=== PATIENT | female | born 1980 | race Two or more races ===

== ENCOUNTER 2017-10-25 15:23 | Emergency (ER) | payer MEDICAID ==
[2017-10-25 15:40] VITALS: BP 125/78
[2017-10-25] MEDS ORDERED: ACETAMINOPHEN 325 MG TABLET PO ONE (16:17)
--- NOTE | 2017-10-25 16:51 | RADIOLOGY REPORT (SQ) ---
EXAM DESCRIPTION: FOOT LEFT COMPLETE COMPLETED DATE/TIME: 10/25/2017 4:35 pm REASON FOR STUDY: pain 5th toe and foot COMPARISON: None. NUMBER OF VIEWS: Three views. TECHNIQUE: AP, lateral and oblique radiographic images acquired of the left foot. LIMITATIONS: None. FINDINGS: MINERALIZATION: Normal. BONES: Faint nondisplaced fracture midshaft of the proximal phalanx of the 5th toe. JOINTS: No effusions. SOFT TISSUES: Soft tissue swelling 5th toe. OTHER: No other significant finding. IMPRESSION: Faint nondisplaced fracture proximal phalanx 5th toe. TECHNICAL DOCUMENTATION: JOB ID: [id number] [employer]- All Rights Reserved Reading location - IP/workstation name: [email or web address]
--- NOTE | 2017-10-25 17:57 | ER Document Report ---
ED Extremity Problem, Lower - General Chief Complaint: Toe Injury Stated Complaint: LEFT PINKY TOE INJURY Time Seen by Provider: 10/25/17 16:17 Mode of Arrival: Ambulatory Information source: Patient Notes: 37-year-old female presents to ED for complaint of fifth toe pain after she kicked a 10 pound weight yesterday. She states she is elevated and iced the foot with no relief. Patient alert and oriented respirations regular and unlabored speaking in full sentences and walks with a limp. TRAVEL OUTSIDE OF THE [place] IN LAST 30 DAYS: No - HPI Patient complains to provider of: Injury, Pain, Swelling Location: 5th Toe Occurred: Yesterday Where: Home Onset/Duration: Sudden, Persistent Quality of pain: Achy, Throbbing Severity: Moderate Pain Level: 4 Context: Stubbed Recent injury: Yes Associated symptoms: Painful ambulation Exacerbated by: Hanging down, Movement, Walking Relieved by: Elevation, Ice, Rest - Related Data Allergies/Adverse Reactions: codeine [Codeine] Allergy (Verified 10/25/17 15:23) Past Medical History - General Information source: Patient - Social History Smoking Status: Current Every Day Smoker Cigarette use (# per day): Yes - One half pack per day Smoking Education Provided: Yes - 4 minutes Lives with: Family Family History: Reviewed & Not Pertinent Patient has suicidal ideation: No Patient has homicidal ideation: No - Past Medical History Cardiac Medical History: Reports: None Pulmonary Medical History: Reports: None EENT Medical History: Reports: None Neurological Medical History: Reports: None Endocrine Medical History: Reports: None Renal/ Medical History: Reports: Hx Ovarian Cysts Malignancy Medical History: Reports: None GI Medical History: Reports: None Musculoskeltal Medical History: Reports Hx Musculoskeletal Trauma Skin Medical History: Reports None Psychiatric Medical History: Reports: None Traumatic Medical History: Reports: Hx Fractures - Leg Infectious Medical History: Reports: None Past Surgical History: Reports: Hx Gynecologic Surgery - Ovarian cyst - Immunizations Hx Diphtheria, Pertussis, Tetanus Vaccination: Yes Review of Systems - Review of Systems Musculoskeletal: Other - Pain swelling and bruising to the fifth toe Physical Exam - Vital signs Vitals: Temp Pulse Resp BP Pulse Ox 98.3 F 81 16 125/78 97 10/25/17 15:39 10/25/17 15:39 10/25/17 15:39 10/25/17 15:39 10/25/17 15:39 Interpretation: Normal - General General appearance: Appears well, Alert - HEENT Head: Normocephalic, Atraumatic Eyes: Normal Pupils: PERRL - Respiratory Respiratory status: No respiratory distress Chest status: Nontender Breath sounds: Normal Chest palpation: Normal - Cardiovascular Rhythm: Regular Heart sounds: Normal auscultation Murmur: No - Abdominal Inspection: Normal Distension: No distension Bowel sounds: Normal Tenderness: Nontender Organomegaly: No organomegaly - Back Back: Normal, Nontender - Extremities General upper extremity: Normal inspection, Nontender, Normal color, Normal ROM , Normal temperature General lower extremity: Normal temperature. No: Danny's sign Foot: Tender, Ecchymosis, Edema, No evidence of FB, Tender 5th metatarsal, Other - Pain swelling bruising to the fifth toe on the left foot and the surrounding area. No: Laceration, Metatarsal compress. pain, Nail injury, Navicular tenderness, Unable to bear weight - Neurological Neuro grossly intact: Yes Cognition: Normal Orientation: AAOx4 [place] Coma Scale Eye Opening: Spontaneous [place] Coma Scale Verbal: Oriented [place] Coma Scale Motor: Obeys Commands [place] Coma Scale Total: 15 Speech: Normal Motor strength normal: LUE, RUE, LLE, RLE Sensory: Normal - Psychological Associated symptoms: Normal affect, Normal mood - Skin Skin Temperature: Warm Skin Moisture: Dry Skin Color: Normal, Ecchymosis - Fifth toe on the left foot and the surrounding foot Course - Re-evaluation Re-evalutation: 10/25/17 23:07 X-ray discussed with patient and written report given to patient. Patient was treated with harry tape and the fifth toe to the fourth. Patient was encouraged to use elevation ice for her pain. Patient was given a small prescription of narcotics. Patient is instructed to follow-up with a gasoline dragline operator for this fractured toe. - Vital Signs Vital signs: Temp Pulse Resp BP Pulse Ox 98.3 F 81 16 125/78 97 10/25/17 15:39 10/25/17 15:39 10/25/17 15:39 10/25/17 15:39 10/25/17 15:39 - Diagnostic Test Radiology reviewed: Image reviewed, Reports reviewed Discharge - Discharge Clinical Impression: Fracture of fifth toe, left, closed Qualifiers: Encounter type: initial encounter Qualified Code(s): S92.502A - Displaced unspecified fracture of left lesser toe(s), initial encounter for closed fracture Condition: Stable Disposition: HOME, SELF-CARE Additional Instructions: Fractured Toe You have fractured your toe. Although this fracture doesn't need a cast or splint, emergency evaluation was needed to assess the straightness of the bones and joints. Reduction ("setting") is necessary for toe fractures which are crooked or twisted. A toe fracture will heal in about three weeks. Usually, the fractured toe is taped to the next toe. The second toe acts as a moving splint to protect the broken one. Ice and elevation help during the first 48 hours. You may need crutches at first if walking is painful. When you begin walking, be careful NOT to do things that hurt. If weight bearing is not comfortable within a few days, you may require a special shoe, walking boot, or cast. Call the doctor or return at once if severe swelling, severe pain, or numbness develop in the toe, or if you suspect you may have re-injured it. Harry Taping Your toes have been taped together -- called "harry taping." The good toe can act as a moving splint to protect the injured toe. You will probably need to keep the tape in place (replacing it when needed) for about three weeks. A firm shoe over the injured toes is usually a good idea. As a general rule, you shouldn't do anything which causes pain to your taped toes. Taping isn't absolute protection, so match your activity to your degree of healing. If you ever suspect that you have re-injured the toe, return for re-examination. Keep the tape dry. Constant wetness harms the skin. Some cotton between the toes may help if perspiration is a problem. Replace the tape as needed when it becomes loose, weak, or dirty. Replace the tape daily if you are sweating. If the toes swell, discolor, or become numb, loosen the tape. Return here if there are problems. Ibuprofen Ibuprofen is an excellent, safe drug for pain control. In addition, it has potent antiinflammatory effects which are beneficial, especially in the treatment of injuries, arthritis, or tendonitis. It's best to take ibuprofen with food. Persons with ulcer disease or allergy to aspirin should notify their physician of this before taking ibuprofen. Take the medication exactly as prescribed. Don't take additional doses unless instructed to do so by your doctor. If you develop wheezing, shortness of breath, hives, faintness, stomach pain, vomiting, or dark black stools, return for re-evaluation at once. ICE & ELEVATION: Apply ice packs frequently against the painful area. Many different schedules are recommended, such as "20 minutes on, 20 minutes off" or "one hour ice, two hours rest." If you need to work, you may need to go longer between ice treatments. You should plan to have the area ice packed AT LEAST one- fourth of the time. The ice should be applied over the wrap, tape, or splint, or over a layer of cloth -- not directly against the skin. Some ice bags have a built-in cloth and can be put directly on the skin. Your injured part should be elevated as much as possible over the next 48 hours. Try to keep the injury above the level of the heart. Avoid use of the injured area. Elevation and rest will decrease the swelling. Oral Narcotic Medication You have been given a prescription for pain control. This medication is a narcotic. It's best taken with food, as nausea can result if taken on an empty stomach. Don't operate machinery or drive within six hours of taking this medication. Do not combine this medicine with alcohol, or with any medication which can cause sedation (such as cold tablets or sleeping pills) unless you get permission from the physician. Narcotics tend to cause constipation. If possible, drink plenty of fluids and eat a diet high in fiber and fruits. FOLLOW-UP CARE: If you have been referred to a physician for follow-up care, call the physician s office for an appointment as you were instructed or within the next two days. If you experience worsening or a significant change in your symptoms, notify the physician immediately or return to the Emergency Department at any time for re-evaluation. Prescriptions: Hydrocodone/Acetaminophen [Deer 5-325 mg Tablet] 1 tab PO Q6HP PRN #6 tablet PRN Reason: Ibuprofen 600 mg PO Q6HP PRN #20 tablet PRN Reason: Forms: Smoking Cessation Education Referrals: LOUIS KENNEDY DPM [ACTIVE STAFF] - Follow up as needed
== END 2017-10-25 18:26 | disposition home or self-care (01) ==
LOC: ER 15:23
DX: S92.052A Displaced other extraarticular fracture of left calcaneus, initial encounter for closed fracture (principal); W22.8XXA Striking against or struck by other objects, initial encounter; F17.210 Nicotine dependence, cigarettes, uncomplicated
CPT/HCPCS: 99406; 99283; 73630; J3490

== ENCOUNTER 2017-12-12 13:16 | Emergency (ER) | payer MEDICAID ==
[2017-12-12] MEDS ORDERED: IPRATROPIUM/ALBUTEROL 0.5-2.5 MG/3 ML AMPUL NEB ONE (14:39)
--- NOTE | 2017-12-12 14:40 | ER Document Report ---
ED Medical Screen (RME) - General Chief Complaint: Chest Pain Stated Complaint: CHEST PAIN Time Seen by Provider: 12/12/17 14:32 Mode of Arrival: Ambulatory Information source: Patient Notes: This is a 37-year-old female who presents to the emergency room with nonradiating chest discomfort for the past 3 days which is been constant. Patient states that she woke up with the pain Sunday morning. She denies any strenuous activity over the weekend. Patient denies any exacerbating or relieving factors. Patient is a smoker half pack per day. She denies any exertional worsening of pain. She states that it occurs at any time. She has no recent surgery or recent immobilization, no history of VTE, no hemoptysis, no malignancy, she denies any symptoms of lower extremity pain or swelling. TRAVEL OUTSIDE OF THE [place] IN LAST 30 DAYS: No - Related Data Allergies/Adverse Reactions: codeine [Codeine] Allergy (Verified 12/12/17 13:17) Past Medical History - Social History Chew tobacco use (# tins/day): No Frequency of alcohol use: Occasional Drug Abuse: None Renal/ Medical History: Reports: Hx Ovarian Cysts. Denies: Hx Peritoneal Dialysis Musculoskeltal Medical History: Reports Hx Musculoskeletal Trauma Traumatic Medical History: Reports: Hx Fractures - Leg Past Surgical History: Reports: Hx Gynecologic Surgery - Ovarian cyst - Immunizations Hx Diphtheria, Pertussis, Tetanus Vaccination: Yes Physical Exam - Vital signs Vitals: Temp Pulse Resp BP Pulse Ox 98.3 F 102 H 18 132/97 H 98 12/12/17 13:26 12/12/17 13:26 12/12/17 13:26 12/12/17 13:26 12/12/17 13:26 Course - Vital Signs Vital signs: Temp Pulse Resp BP Pulse Ox 98.3 F 102 H 18 132/97 H 98 12/12/17 13:26 12/12/17 13:26 12/12/17 13:26 12/12/17 13:26 12/12/17 13:26
[2017-12-12 15:11] LABS: ABSOLUTE BASOPHILS # (AUTO) 0.1 10^3/uL (0.0-0.2); ABSOLUTE EOSINOPHILS # (AUTO) 0.1 10^3/uL (0.0-0.6); ABSOLUTE LYMPHOCYTES (AUTO) 3.1 10^3/uL (0.5-4.7); ABSOLUTE MONOCYTES (AUTO) 0.5 10^3/uL (0.1-1.4); ABSOLUTE NEUT (AUTO) 3.8 10^3/uL (1.7-8.2); BASOPHILS % (AUTO) 0.7 % (0-2); EOSINOPHILS % (AUTO) 1.8 % (0-6); HEMATOCRIT 43.7 % (36.0-47.0); HEMOGLOBIN 14.9 g/dL (12.0-15.5); LYMPHOCYTES % (AUTO) 40.6 % (13-45); MEAN CORPUSCULAR HEMOGLOBIN 27.6 pg (27.0-33.4); MEAN CORPUSCULAR HGB CONC 34.1 g/dL (32.0-36.0); MEAN CORPUSCULAR VOLUME 81 fl (80-97); MONOCYTES % (AUTO) 6.4 % (3-13); PLATELET COUNT 268 10^3/uL (150-450); RED BLOOD COUNT 5.41 10^6/uL (3.72-5.28); RED CELL DISTRIBUTION WIDTH 15.8 % (11.5-14.0); SEGMENTED NEUTROPHILS % (AUTO) 50.5 % (42-78); TOTAL CELLS COUNTED % (AUTO) 100 %; WHITE BLOOD COUNT 7.6 10^3/uL (4.0-10.5)
--- NOTE | 2017-12-12 15:34 | ER Document Report ---
ED General - General Chief Complaint: Chest Pain Stated Complaint: CHEST PAIN Time Seen by Provider: 12/12/17 14:32 Mode of Arrival: Ambulatory Information source: Patient, PENDING SALE TO [facility] Records Notes: 37-year-old otherwise healthy female presents to the emergency department with chief complaint of constant chest pressure for the past 3 days. Patient states today at 1:30 AM she woke from sleep with chest pressure, palpitations and "adrenaline". Denies any radiation, pain worse with lying flat. Asssociated diarrhea and loss of appetite. Patient states diarrhea started 3 days prior to arrival. She states that she has had over 5-6 nonbloody episodes without associated abdominal pain or nausea. Patient denies sick contacts, recent illness, recent antibiotic use. She denies recent surgery , estrogen use, history of PE or DVT. Current 1/2 ppd smoker, denies drug or alcohol use. Denies recent illness, shortness of breath, diaphoresis, LE swelling/pain, abdominal pain, nausea, vomiting, syncope, headache. Patient does admit to increased stress with recently being homeless, jobless. She is living in a motel at this time. TRAVEL OUTSIDE OF THE [place] IN LAST 30 DAYS: No - HPI Onset: Other Onset/Duration: Gradual, Persistent, Worse Quality of pain: Pressure Severity: Mild Associated symptoms: Chest pain, Diarrhea. denies: Fever, Nausea, Vomiting, Shortness of breath Exacerbated by: Supine Relieved by: Denies Similar symptoms previously: No Recently seen / treated by doctor: No - Related Data Allergies/Adverse Reactions: codeine [Codeine] Allergy (Verified 12/12/17 13:17) Past Medical History - General Information source: Patient - Social History Smoking Status: Current Every Day Smoker Cigarette use (# per day): Yes - 10 Chew tobacco use (# tins/day): No Smoking Education Provided: Yes - 4 minutes of smoking cessation provided Frequency of alcohol use: Occasional Drug Abuse: None Lives with: Family Family History: Reviewed & Not Pertinent Patient has suicidal ideation: No Patient has homicidal ideation: No - Medical History Medical History: Negative Renal/ Medical History: Reports: Hx Ovarian Cysts. Denies: Hx Peritoneal Dialysis Musculoskeletal Medical History: Reports Hx Musculoskeletal Trauma Traumatic Medical History: Reports: Hx Fractures - Leg Past Surgical History: Reports: Hx Gynecologic Surgery - Ovarian cyst - Immunizations Hx Diphtheria, Pertussis, Tetanus Vaccination: Yes Review of Systems - Review of Systems Notes: REVIEW OF SYSTEMS: CONSTITUTIONAL : Denies fever, chills, or sweats. Denies recent illness. Denies weight loss, recent hospitalizations. EENT: Denies visual changes, eye pain. Denies nasal or sinus congestion or discharge. Denies sore throat, oral lesions, difficulty swallowing. CARDIOVASCULAR: Denies lower extremity edema. RESPIRATORY: Denies cough, cold, or chest congestion. Denies shortness of breath, wheezing. GASTROINTESTINAL: Denies abdominal pain or distention. Denies nausea, vomiting. Denies blood in vomitus, stools, or per rectum. Denies black, tarry stools. Denies constipation. GENITOURINARY: Denies difficulty urinating, painful urination, frequency, blood in urine, or vaginal discharge. MUSCULOSKELETAL: Denies back or neck pain or stiffness. Denies joint pain or swelling. SKIN: Denies rash, lesions or sores. HEMATOLOGIC : Denies easy bruising or bleeding. LYMPHATIC: Denies swollen glands. NEUROLOGICAL: Denies confusion or altered mental status. Denies passing out or loss of consciousness. Denies dizziness or lightheadedness. Denies headache. Denies weakness or paralysis. Denies problems difficulty with ambulation, slurred speech. Denies sensory loss, numbness, or tingling. Denies seizures. PSYCHIATRIC: Denies anxiety or stress. Denies depression, suicidal ideation, or homicidal ideation. Denies visual or auditory hallucinations. Physical Exam - Vital signs Vitals: Temp Pulse Resp BP Pulse Ox 98.3 F 102 H 18 132/97 H 98 12/12/17 13:26 12/12/17 13:26 12/12/17 13:26 12/12/17 13:26 12/12/17 13:26 - Notes Notes: PHYSICAL EXAMINATION: GENERAL: Well-appearing, well-nourished and in no acute distress. HEAD: Atraumatic, normocephalic. EYES: Pupils equal round and reactive to light, extraocular movements intact, conjunctiva are normal. ENT: Nares patent, oropharynx clear without exudates. Moist mucous membranes. NECK: Normal range of motion, supple without lymphadenopathy LUNGS: Breath sounds clear to auscultation bilaterally and equal. No wheezes rales or rhonchi. HEART: Regular rate and rhythm without murmurs ABDOMEN: Soft, nontender, nondistended abdomen. No guarding, no rebound. No masses appreciated. Female : deferred Musculoskeletal: Normal range of motion, no pitting or edema. No cyanosis. NEUROLOGICAL: Cranial nerves grossly intact. Normal speech, normal gait. Normal sensory, motor exams PSYCH: Normal mood, normal affect. SKIN: Warm, Dry, normal turgor, no rashes or lesions noted. Course - Re-evaluation Re-evalutation: 12/12/17 17:50 Laboratory 12/12/17 12/12/17 12/12/17 14:20 14:20 14:20 WBC 7.6 RBC 5.41 H Hgb 14.9 Hct 43.7 MCV 81 MCH 27.6 MCHC 34.1 RDW 15.8 H Plt Count 268 Seg Neutrophils % 50.5 Lymphocytes % 40.6 Monocytes % 6.4 Eosinophils % 1.8 Basophils % 0.7 Absolute Neutrophils 3.8 Absolute Lymphocytes 3.1 Absolute Monocytes 0.5 Absolute Eosinophils 0.1 Absolute Basophils 0.1 D-Dimer Sodium 143.3 Potassium 4.3 Chloride 108 H Carbon Dioxide 21 L Anion Gap 14 BUN 7 Creatinine 0.66 Est GFR ( Amer) > 60 Est GFR (Non-Af Amer) > 60 Glucose 94 Calcium 9.6 Phosphorus Magnesium Total Bilirubin 0.6 Direct Bilirubin 0.2 Neonat Total Bilirubin Not Reportable Neonat Direct Bilirubin Not Reportable Neonat Indirect Bili Not Reportable AST 33 ALT 35 Alkaline Phosphatase 62 Creatine Kinase 228 H CK-MB (CK-2) 0.90 Troponin I < 0.012 Total Protein 7.7 Albumin 4.5 TSH Free T4 Free T3 pg/mL Urine Color Urine Appearance Urine pH Ur Specific [place] Urine Protein Urine Glucose (UA) Urine Ketones Urine Blood Urine Nitrite Urine Bilirubin Urine Urobilinogen Ur Leukocyte Esterase Urine WBC (Auto) Urine RBC (Auto) Urine Bacteria (Auto) Squamous Epi Cells Auto Urine Mucus (Auto) Urine Ascorbic Acid Urine HCG, Qual 12/12/17 12/12/17 12/12/17 14:20 14:20 14:20 WBC RBC Hgb Hct MCV MCH MCHC RDW Plt Count Seg Neutrophils % Lymphocytes % Monocytes % Eosinophils % Basophils % Absolute Neutrophils Absolute Lymphocytes Absolute Monocytes Absolute Eosinophils Absolute Basophils D-Dimer 0.32 Sodium Potassium Chloride Carbon Dioxide Anion Gap BUN Creatinine Est GFR ( Amer) Est GFR (Non-Af Amer) Glucose Calcium Phosphorus 4.2 Magnesium 2.1 Total Bilirubin Direct Bilirubin Neonat Total Bilirubin Neonat Direct Bilirubin Neonat Indirect Bili AST ALT Alkaline Phosphatase Creatine Kinase CK-MB (CK-2) Troponin I Total Protein Albumin TSH 1.76 Free T4 0.85 Free T3 pg/mL 3.77 Urine Color Urine Appearance Urine pH Ur Specific [place] Urine Protein Urine Glucose (UA) Urine Ketones Urine Blood Urine Nitrite Urine Bilirubin Urine Urobilinogen Ur Leukocyte Esterase Urine WBC (Auto) Urine RBC (Auto) Urine Bacteria (Auto) Squamous Epi Cells Auto Urine Mucus (Auto) Urine Ascorbic Acid Urine HCG, Qual 12/12/17 17:00 WBC RBC Hgb Hct MCV MCH MCHC RDW Plt Count Seg Neutrophils % Lymphocytes % Monocytes % Eosinophils % Basophils % Absolute Neutrophils Absolute Lymphocytes Absolute Monocytes Absolute Eosinophils Absolute Basophils D-Dimer Sodium Potassium Chloride Carbon Dioxide Anion Gap BUN Creatinine Est GFR ( Amer) Est GFR (Non-Af Amer) Glucose Calcium Phosphorus Magnesium Total Bilirubin Direct Bilirubin Neonat Total Bilirubin Neonat Direct Bilirubin Neonat Indirect Bili AST ALT Alkaline Phosphatase Creatine Kinase CK-MB (CK-2) Troponin I Total Protein Albumin TSH Free T4 Free T3 pg/mL Urine Color YELLOW Urine Appearance SLIGHTLY-CLOUDY Urine pH 6.0 Ur Specific [place] 1.020 Urine Protein NEGATIVE Urine Glucose (UA) NEGATIVE Urine Ketones NEGATIVE Urine Blood SMALL H Urine Nitrite NEGATIVE Urine Bilirubin NEGATIVE Urine Urobilinogen NEGATIVE Ur Leukocyte Esterase SMALL H Urine WBC (Auto) 15 Urine RBC (Auto) 3 Urine Bacteria (Auto) TRACE Squamous Epi Cells Auto 4 Urine Mucus (Auto) MANY Urine Ascorbic Acid NEGATIVE Urine HCG, Qual NEGATIVE 12/12/17 17:57 Discussed findings of her urinalysis but patient has no urinary symptoms at this time. She is agreeable with holding antibiotics awaiting urine culture. Patient will be discharged home in stable condition with a prescription for Vistaril. - Vital Signs Vital signs: Temp Pulse Resp BP Pulse Ox 98.3 F 104 H 24 H 116/93 H 98 12/12/17 13:26 12/12/17 14:37 12/12/17 17:36 12/12/17 17:36 12/12/17 17:36 - Laboratory Result Diagrams: 12/12/17 14:20 12/12/17 14:20 Laboratory results interpreted by me: 12/12/17 12/12/17 12/12/17 14:20 14:20 17:00 RBC 5.41 H RDW 15.8 H Chloride 108 H Carbon Dioxide 21 L Creatine Kinase 228 H Urine Blood SMALL H Ur Leukocyte Esterase SMALL H - Diagnostic Test Radiology reviewed: Image reviewed, Reports reviewed - EKG Interpretation by Me EKG shows normal: Sinus rhythm Rate: Tachycardia Rhythm: NSR When compared to previous EKG there are: Previous EKG unavailable Discharge - Discharge Clinical Impression: Heart palpitations, Anxiety, Chest pressure Diarrhea Qualifiers: Diarrhea type: unspecified type Qualified Code(s): R19.7 - Diarrhea, unspecified Condition: Good Disposition: HOME, SELF-CARE Instructions: Chest Pain of Unclear Cause ([facility]), Palpitations (Irregular or Rapid Heartrate) ([facility]), Anxiety ([facility]) Additional Instructions: Your blood work today including CBC, thyroid hormone, cardiac enzymes were all within normal limits. You have no electrolyte abnormalities. Your EKG was also normal. Your chest x-ray showed no evidence of infection. Prescriptions: Hydroxyzine Pamoate [Vistaril 50 mg Capsule] 50 mg PO Q8H PRN #15 capsule PRN Reason: Anxiety Forms: Smoking Cessation Education
[2017-12-12 15:36] LABS: ALANINE AMINOTRANSFERASE 35 U/L (9-52); ALBUMIN 4.5 g/dL (3.5-5.0); ALKALINE PHOSPHATASE 62 U/L (38-126); ANION GAP 14 (5-19); ASPARTATE AMINO TRANSFERASE 33 U/L (14-36); BILIRUBIN,DIRECT 0.2 mg/dL (0.0-0.4); BILIRUBIN,TOTAL 0.6 mg/dL (0.2-1.3); BLOOD UREA NITROGEN 7 mg/dL (7-20); CALCIUM 9.6 mg/dL (8.4-10.2); CARBON DIOXIDE 21 mmol/L (22-30); CHLORIDE 108 mmol/L (98-107); CREATINE KINASE 228 U/L (30-135); GLUCOSE 94 mg/dL (75-110); POTASSIUM 4.3 mmol/L (3.6-5.0); SODIUM 143.3 mmol/L (137-145); TOTAL PROTEIN 7.7 g/dL (6.3-8.2)
[2017-12-12 15:49] LABS: TROPONIN I < 0.012 ng/mL
[2017-12-12 15:52] LABS: FREE T3 3.77 pg/mL (2.77-5.27); FREE T4 (FREE THYROXINE) 0.85 ng/dL (0.78-2.19)
[2017-12-12 16:06] LABS: THYROID STIMULATING HORMONE 1.76 uIU/mL (0.47-4.68)
[2017-12-12 16:26] LABS: PHOSPHORUS 4.2 mg/dL (2.5-4.5)
[2017-12-12 17:19] LABS: APPEARANCE,URINE SLIGHTLY-CLOUDY; BILIRUBIN,URINE NEGATIVE (NEGATIVE); COLOR,URINE YELLOW; GLUCOSE, URINE NEGATIVE (NEGATIVE); KETONES,URINE NEGATIVE (NEGATIVE); LEUKOCYTE ESTERASE,URINE SMALL (NEGATIVE); NITRITE,URINE NEGATIVE (NEGATIVE); PROTEIN,URINE NEGATIVE (NEGATIVE); UROBILINOGEN,URINE NEGATIVE mg/dL (<2.0)
[2017-12-12] MEDS ORDERED: LORAZEPAM 0.5 MG TABLET PO ONE (17:23)
[2017-12-12 18:08] VITALS: BP 121/78
--- NOTE | 2017-12-12 18:12 | RADIOLOGY REPORT (SQ) ---
EXAM DESCRIPTION: CHEST 2 VIEWS COMPLETED DATE/TIME: 12/12/2017 5:34 pm REASON FOR STUDY: [id number] COMPARISON: None. EXAM PARAMETERS: NUMBER OF VIEWS: two views TECHNIQUE: Digital Frontal and Lateral radiographic views of the chest acquired. RADIATION DOSE: NA LIMITATIONS: none FINDINGS: LUNGS AND PLEURA: No opacities, masses or pneumothorax. No pleural effusion. MEDIASTINUM AND HILAR STRUCTURES: No masses or contour abnormalities. HEART AND VASCULAR STRUCTURES: Heart normal size. No evidence for failure. BONES: No acute findings. HARDWARE: None in the chest. OTHER: No other significant finding. IMPRESSION: NO ACUTE RADIOGRAPHIC FINDING IN THE CHEST. TECHNICAL DOCUMENTATION: JOB ID: [id number] [employer]- All Rights Reserved Reading location - IP/workstation name: [email or web address]
--- NOTE | 2017-12-12 22:15 | EKG REPORT ---
SEVERITY:- OTHERWISE NORMAL ECG - SINUS TACHYCARDIA : Confirmed by: Kwadwo Chavez 12-Dec-2017 22:14:29
== END 2017-12-12 18:13 | disposition home or self-care (01) ==
LOC: ER 13:16
DX: R00.2 Palpitations (principal); R07.9 Chest pain, unspecified; R19.7 Diarrhea, unspecified; F41.9 Anxiety disorder, unspecified; F17.210 Nicotine dependence, cigarettes, uncomplicated; Z88.6 Allergy status to analgesic agent
CPT/HCPCS: 93005; 99406; 94640; 99285; 36415; 87086; 84439; 82553; 82550; 83735; 84100; 84443; 85025; 81025; 87088; 80053; 81001; 84484; 84481; 85379; 71046; 93010; J7620